=== PATIENT | female | born 1995 | race Caucasian/White ===

== ENCOUNTER 2016-09-11 14:51 | Emergency (ER) | payer BC, OTHER ==
[2016-09-11 15:13] VITALS: RESP 20
[2016-09-11] MEDS ORDERED: KETOROLAC TROMETHAMINE 30 MG/ML SOL IM ONE (16:16)
[2016-09-11] MEDS ORDERED: KETOROLAC TROMETHAMINE 30 MG/ML SOL ONE (16:23)
[2016-09-11 16:45] VITALS: TEMP 99.7; O2SAT 98
[2016-09-11 16:46] VITALS: BP 121/73; PULSE 82
== END 2016-09-11 16:55 | disposition home or self-care (01) ==
LOC: ED 14:51
DX: S00.03XA Contusion of scalp, initial encounter (principal); W18.2XXA Fall in (into) shower or empty bathtub, initial encounter
CPT/HCPCS: 99284 ×3; J1885; 70450

== ENCOUNTER 2017-05-04 22:40 | Emergency (ER) | payer BC ==
[2017-05-04] MEDS ORDERED: ONDANSETRON HCL 4 MG/2 ML SOL ONE (22:53)
[2017-05-04] MEDS ORDERED: ONDANSETRON HCL 4 MG/2 ML SOL IV ONE (22:54)
[2017-05-04] MEDS ORDERED: SODIUM CHLORIDE 0.9% 1000ML 1,000 ML IV ONE (22:54)
[2017-05-04 23:05] LABS: BASOPHILS % (AUTO) 1 % (0-3); EOSINOPHILS % (AUTO) 2 % (0-9); HEMATOCRIT 42 % (35-47); MEAN CORPUSCULAR HGB CONC 35.1 gm/dl (32.0-36.0); MEAN CORPUSCULAR VOLUME 90 fL (81-99); MONOCYTES % (AUTO) 7.1 % (0-12); NEUTROPHILS % (AUTO) 61.7 % (37-80)
[2017-05-04 23:13] LABS: CALCIUM 8.9 mg/dl (8.5-10.1); POTASSIUM 3.8 mMol/L (3.5-5.1)
[2017-05-04 23:34] VITALS: RESP 16; TEMP 98.3
[2017-05-05 01:38] VITALS: BP 128/82; PULSE 88; O2SAT 96
== END 2017-05-05 00:52 | disposition home or self-care (01) ==
LOC: ED 22:40
DX: K29.70 Gastritis, unspecified, without bleeding (principal)
CPT/HCPCS: 80048; 85025; 99284; J2405

== ENCOUNTER 2018-06-14 02:38 | Emergency (ER) | payer SELFPAY ==
[2018-06-14] MEDS ORDERED: ONDANSETRON 4 MG ODT ONE (02:58)
[2018-06-14] MEDS: ONDANSETRON 4 MG ODT BU ONE (03:00)
[2018-06-14 03:06] VITALS: TEMP 96.8; O2SAT 99
[2018-06-14 03:19] VITALS: BP 135/101; PULSE 109; RESP 16
== END 2018-06-14 03:16 | disposition home or self-care (01) | DRG 392 ==
LOC: ED 02:38
DX: K52.9 Noninfective gastroenteritis and colitis, unspecified (principal)
CPT/HCPCS: 99282; A9270-GY